=== PATIENT | male | born 1940 | race Two or more races ===

== ENCOUNTER 2020-05-07 12:07 | Emergency (ER) | payer SELFPAY ==
[~2020-05-07] VITALS: Ht 170.2 cm; Wt 127.0 kg
[2020-05-07] MEDS ORDERED: ETOMIDATE (2MG/ML) 20ML VIAL IV ONE ×2 (12:56→13:00)
[2020-05-07] MEDS ORDERED: SUCCINYLCHOLINE CHLORIDE 20 MG/ML 10ML VIAL IV ONE ×2 (12:57→13:00)
[2020-05-07 13:20] VITALS: BP 91/40
[2020-05-07 14:31] LABS: Hematocrit 32.7 % (41.0-53.0); Hemoglobin 10.8 g/dL (13.5-17.5); Mean Corpuscular Hemoglobin 32.7 pg (28.0-32.0); Mean Corpuscular Hgb Conc. 33.1 g/dL (32.0-36.0); Mean Corpuscular Volume 98.8 fL (80.0-100.0); Platelet Count (auto) 204 10^3/uL (140-450); Red Blood Cells 3.31 10^6/uL (4.5-5.90); Red Cell Distribution Width 18.8 % (11.8-14.3); White Blood Cell 18.7 10^3/uL (4.4-10.8)
[2020-05-07 14:43] LABS: Basophils % (manual) 0 (0.0-2.0); Blast Cells 0; Eosinophils % (manual) 0 (0-7); Promyelocytes % 0; Reactive Lymphocytes 0
[2020-05-07 14:45] LABS: Albumin 1.6 g/dL (3.4-5.0); BUN/Creatinine Ratio 7.6; Potassium 4.1 mmol/L (3.5-5.1)
[2020-05-07 14:48] LABS: Lactic Acid w/Reflex 5.4 mmol/L (0.4-2.0)
[2020-05-07 14:52] LABS: Bilirubin, Total 2.3 mg/dL (0.2-1.0); Total Protein 6.3 g/dL (6.4-8.2)
[2020-05-07 14:57] LABS: INR 1.64 (0.9-1.15); Partial Thromboplastin Time 43.9 sec (23.0-31.2)
[2020-05-07 15:44] LABS: Band Neutrophils % (manual) 26; Lymphocytes % (manual) 8 (10.0-50.0); Metamyelocytes % 1; Monocytes % (manual) 2 (0-12); Myelocytes % 2
[2020-05-07] MEDS ORDERED: MIDAZOLAM DRIP 50 mg/50mL 50 ML IV SCH (17:30)
--- NOTE | 2020-05-07 18:30 | NUR ---
Respiratory note: PT TERMINALLY EXTUBATED AT THIS TIME AT FAMILY'S REQUEST AND ORDERS.
[2020-05-07 19:00] VITALS: BP 0/0
== END 2020-05-08 03:06 | disposition home or self-care (01) ==
LOC: EDBD 12:07 → ER 12:07
DX: J96.01 Acute respiratory failure with hypoxia (principal); J96.02 Acute respiratory failure with hypercapnia; N17.8 Other acute kidney failure; N18.9 Chronic kidney disease, unspecified; Z99.2 Dependence on renal dialysis; Z20.828 Contact with and (suspected) exposure to other viral communicable diseases
CPT/HCPCS: 31500; 36415; 36600; 71045; 80053; 82728; 82805; 83605; 83880; 84484; 85007; 85027; 85379; 85610; 85730; 87070; 87077; 87186; 87205; 96374; 99152; 99285; J0330; J2250